=== PATIENT | female | born 1960 | race African-American/Black ===

== ENCOUNTER → 2017-03-12 | Outpatient (CLI) | payer BC ==
[~2017-03-12] MED LIST: ESCI10TA10 PO; ESTR1TAB15 PO; LEVO50TA5 PO; MODA100T22 PO; TRAZ100T15 PO; VALA1000 PO; [UNRECOGNIZED DRUG - OTHER]
[2017-03-12 15:48] LABS: BASOPHILS # (AUTO) 0.03 x10^3/uL (0-0.1); BASOPHILS % (AUTO) 1 % (0-1); EOSINOPHILS # (AUTO) 0.17 x10^3/uL (0-0.4); EOSINOPHILS % (AUTO) 3 % (1-7); LYMPHOCYTES # (AUTO) 2.07 x10^3/uL (1-3.4); LYMPHOCYTES % (AUTO) 36 % (22-44); MD NO; MEAN CORPUSCULAR HEMOGLOBIN 26.3 pg (27.0-34.8); MEAN CORPUSCULAR HGB CONC 32.3 g/dL (32.4-35.8); MEAN CORPUSCULAR VOLUME 81.3 fL (80-100); MEAN PLATELET VOLUME 7.6 fL (7.4-10.4); MONOCYTES % (AUTO) 5 % (2-9); NEUTROPHILS # (AUTO) 3.21 x10^3/uL (1.8-6.8); NEUTROPHILS % (AUTO) 56 % (42-75); PLATELET COUNT 263 x10^3/uL (130-400); RED BLOOD COUNT 4.53 x10^6/uL (3.82-5.3)
[2017-03-12 15:59] LABS: ANION GAP 8 mmol/L (5-15); CHLORIDE 105 mmol/L (98-107)
[2017-03-12 16:00] LABS: CREATININE 0.98 mg/dL (0.55-1.02)
== END | disposition home or self-care (01) ==
LOC: STAR 14:38
PROVIDERS: ATTEND Otolaryngology Facial Plastic Surgery
DX: Z01.818 Encounter for other preprocedural examination (principal); J34.2 Deviated nasal septum
CPT/HCPCS: 36415; 71046; 80048; 85025; 93005

== ENCOUNTER 2017-03-16 07:15 | Day surgery (SDC) | payer BC ==
[~2017-03-16] VITALS: Ht 166.4 cm; Wt 85.3 kg
[~2017-03-16 07:15] MED LIST changes: +COCAINE TOPICAL SOLN 4%, 4ML ONE; +EPINEPHRINE 1 MG/ML, 1ML ONE; +LIDOCAINE 1%, 50ML ONE; +MUPIROCIN OINT 2%, 22GM ONE; +OXYMETAZOLINE NASAL SPRAY 0.05%, 15ML ONE; -VALA1000 PO
[2017-03-16] MEDS ORDERED: LACTATED RINGERS 1,000 ML IV SCH (07:46)
[2017-03-16 07:48] VITALS: BP 117/80
[2017-03-16] MEDS ORDERED: VALA1000 PO (07:53)
[2017-03-16] MEDS ORDERED: LIDOCAINE 1%, 2ML SQ PRN (08:00)
[2017-03-16] MEDS ORDERED: MIDAZOLAM 1 MG/ML, 2ML ONE (08:38)
[2017-03-16] MEDS ORDERED: FENTANYL PF 100 MCG/2ML ONE ×2 (08:38→08:39)
[2017-03-16] MEDS ORDERED: NEOSTIGMINE 1 MG/ML, 10ML ONE (08:48)
[2017-03-16] MEDS ORDERED: GLYCOPYRROLATE 0.2MG/1ML, 5ML ONE (08:48)
[2017-03-16] MEDS ORDERED: ROCURONIUM 10 MG/ML,10ML ONE (08:48)
[2017-03-16] MEDS ORDERED: KETOROLAC 30 MG/1 ML ONE (08:48)
[2017-03-16] MEDS ORDERED: CEFAZOLIN 1,000 MG ONE (08:48)
[2017-03-16] MEDS ORDERED: SUCCINYLCHOLINE 20 MG/ML, 10ML ONE (08:48)
[2017-03-16] MEDS ORDERED: DEXAMETHASONE 4 MG/ML, 1ML ONE (08:48)
[2017-03-16] MEDS ORDERED: PROPOFOL 10 MG/ML, 20ML ONE (08:48)
[2017-03-16] MEDS ORDERED: ONDANSETRON 2MG/ML, 2ML ONE (08:48)
[2017-03-16] MEDS ORDERED: COCAINE TOPICAL SOLN 4%, 4ML TP ONE (09:16)
[2017-03-16] MEDS ORDERED: LIDOCAINE 1%-EPI 1:100K, 20ML INFIL ONE (09:16)
[2017-03-16] MEDS ORDERED: hydrALAzine 20 MG/ML, 1ML IV PRN (10:00)
[2017-03-16] MEDS ORDERED: HYDROmorphone 1 MG/ML, 1ML IV PRN (10:00)
[2017-03-16] MEDS ORDERED: MEPERIDINE/PF 25MG/0.5ML IVPush PRN (10:00)
[2017-03-16] MEDS ORDERED: HYDROcodone/APAP 7.5-325MG/15ML UDC PO PRN (10:00)
[2017-03-16] MEDS ORDERED: ONDANSETRON 2MG/ML, 2ML IVPush PRN (10:00)
[2017-03-16] MEDS ORDERED: DIAZEPAM 5 MG/ML, 2ML IVPush PRN (10:00)
[2017-03-16] MEDS ORDERED: FENTANYL PF 100 MCG/2ML IV PRN (10:00)
[2017-03-16] MEDS ORDERED: ALBUTEROL SULFATE 2.5 MG/3 ML NPPB PRN (10:00)
[2017-03-16] MEDS ORDERED: MIDAZOLAM 1 MG/ML, 2ML IV PRN (10:00)
[2017-03-16] MEDS ORDERED: PROMETHAZINE 25 MG/ML, 1ML IV PRN (10:00)
[2017-03-16] MEDS ORDERED: OXYcodone 5 MG/5 ML ORAL.SOL UDC PO PRN (10:00)
[2017-03-16] MEDS ORDERED: ACETAMINOPHEN 325 MG TABLET PO PRN (10:00)
[2017-03-16] MEDS ORDERED: EPHEDRINE 50 MG/ML, 1ML IVPush PRN (10:00)
[2017-03-16] MEDS ORDERED: METOPROLOL 1 MG/ML, 5ML IV PRN (10:00)
[2017-03-16] MEDS ORDERED: LABETALOL 5MG/ML, 20ML IV PRN (10:00)
== END 2017-03-16 12:35 ==
LOC: OUT 07:15
PROVIDERS: ATTEND Otolaryngology Facial Plastic Surgery
DX: J34.2 Deviated nasal septum (principal); J34.3 Hypertrophy of nasal turbinates; Z98.890 Other specified postprocedural states; E03.9 Hypothyroidism, unspecified; F41.9 Anxiety disorder, unspecified; F19.90 Other psychoactive substance use, unspecified, uncomplicated
CPT/HCPCS: 30140; 30520; J0171; J0330; J0690; J1100; J1885; J2250; J2405; J2704; J2710; J3010; J3490; J7120